=== PATIENT | female | born 2000 | race Caucasian/White ===

== ENCOUNTER → 2022-09-24 | Day surgery (SDC) | payer BC ==
[~2022-09-24] VITALS: Ht 162.6 cm; Wt 50.3 kg
[~2022-09-24] MED LIST: DICY20TA20 PO; LEXA1TAB PO; LIDOCAINE 2% 100MG/5ML SDV (FOR ANES.) As Ordered ONE; NS 1,000 ML IV ONE; VIEN1TAB PO; propofoL 200 MG/20 ML VIAL As Ordered ONE
[2022-09-24 11:51] VITALS: BP 111/59
== END | disposition home or self-care (01) ==
LOC: M OPP 09:55
PROVIDERS: ATTEND Internal Medicine Gastroenterology
DX: K52.89 Other specified noninfective gastroenteritis and colitis (principal); R19.7 Diarrhea, unspecified; K31.89 Other diseases of stomach and duodenum; R10.9 Unspecified abdominal pain; Z79.899 Other long term (current) drug therapy